=== PATIENT | male | born 1990 | race Caucasian/White ===

== ENCOUNTER 2018-05-15 08:28 | Day surgery (SDC) | payer BC ==
[2018-05-15] MEDS ORDERED: NA CHLORIDE 0.9% 1,000 ML ONE (09:27)
[2018-05-15] MEDS ORDERED: FENTANYL CITR 100 MCG/2 ML ONE (09:45)
[2018-05-15] MEDS ORDERED: FLUMAZENIL 0.1 MG/ML (5 mL VIAL) IV ONE (09:46)
[2018-05-15] MEDS ORDERED: MIDAZOLAM HCL 2 MG/2 ML INJ ONE (09:46)
[2018-05-15] MEDS ORDERED: NALOXONE 0.4 MG/ML VIAL ONE (09:47)
[2018-05-15] MEDS ORDERED: HYDROCODONE/APAP 7.5/325 MG TAB ONE (12:35)
--- NOTE | 2018-05-15 13:15 | RAD REPORT ---
EXAM DESCRIPTION: - Liver Biopsy Perc CT - 05/15/2018 11:17 am CLINICAL HISTORY: Elevated liver function test/abnormal enzymes. TECHNIQUE: All CT scans are performed using dose optimization technique as appropriate and may inclu de automated exposure control or mA/KV adjustment according to patient size. The risks, benefits and alternatives to the procedure were explained to the patient and informed cons ent obtained. The patient was pre-medicated with a total of 4 milligrams Versed at and 75 micrograms fentanyl intravenously. Conscious sedation was performed and monitored by a nurse in attendance for a pproximately 45 minutes. The patient was placed supine in the CT scanner. Skin and subcutaneous tissues were anesthetized with Lidocaine. Under CT guidance a 17-gauge needle was placed into the left lobe of the liver. Through t his 18-gauge needle placed. Three 2 cm core specimens were obtained and sent to pathology. The post biopsy images do not demonstrate a hematoma. The patient experienced no immediate complication. IMPRESSION: Core biopsies of the liver.
== END 2018-05-15 13:45 | disposition home or self-care (01) ==
LOC: DS 08:28
PROVIDERS: ATTEND Internal Medicine Gastroenterology
DX: K76.0 Fatty (change of) liver, not elsewhere classified (principal); R94.5 Abnormal results of liver function studies; R16.1 Splenomegaly, not elsewhere classified
CPT/HCPCS: 88307; 88313; J2250; J2310; J3010; J7030